=== PATIENT | male | born 1940 | race Caucasian/White ===

== ENCOUNTER 2016-06-03 12:02 | Emergency (ER) | payer OTHER, MEDICAID ==
[2016-06-03] MEDS ORDERED: OPTIRAY 350 100 ML VIAL HMH IV ONE (12:03)
[2016-06-03] MEDS ORDERED: ONDANSETRON 4 MG VIAL ONE (14:44)
[2016-06-03] MEDS ORDERED: SODIUM CHLORIDE 0.9% 1,000 ML ONE (14:44)
== END 2016-06-03 19:10 | disposition home or self-care (01) ==
LOC: ER 12:02
DX: K92.1 Melena (principal)
CPT/HCPCS: 36415; 74177; 80053; 81003; 83690; 85025; 96374; 99284; J2405; Q9967